=== PATIENT | female | born 1930 | race Caucasian/White ===

== ENCOUNTER 2018-09-29 09:13 | Day surgery (SDC) | payer OTHER, BC ==
[2018-09-27 15:32] VITALS: BMI 28.2
[2018-09-29 11:37] VITALS: TEMP 98.1
[2018-09-29 12:35] VITALS: BP 138/70; PULSE 81
--- NOTE | 2018-10-02 18:06 | PATH ---
Surgical Pathology Report Patient Name: COLIN WHATLEY [facility]. Rec. #: [id number] /Age/Gender: 1930 (Age: 88) / F Account: [id number] Location: [facility]-ENDOSCOPY Taken: 09/29/2018 Received: 09/29/2018 Reported: 10/02/2018 Physicians: Jeremias Clark M.D. Specimen(s) Received A: BX ANTRUM B: BX TRANSVERSE COLON POLYP C: BX RIGHT COLON POLYP Clinical History Abdominal pain with GERD, adenoma surveillance, family history of colon cancer, worsening constipation, history of gastric polyp, surveillance Postoperative diagnosis: Antral gastritis, colon polyps, diverticulosis Final Diagnosis A. ANTRUM GASTRITIS, BIOPSY: GASTRIC MUCOSA WITH MILD CHRONIC GASTRITIS. IMMUNOSTAIN FOR H. PYLORI IS NEGATIVE. NEGATIVE FOR INTESTINAL METAPLASIA. B. TRANSVERSE COLON POLYPS, POLYPECTOMY: TUBULAR ADENOMA, FRAGMENTS. SEPARATE FRAGMENTS OF COLONIC MUCOSA WITH FOCAL SURFACE HYPERPLASTIC CHANGE. C. RIGHT COLON POLYP, POLYPECTOMY: TUBULAR ADENOMA. Electronically Signed Amna Cintron M.D. Gross Description A. Received in formalin, labeled "biopsy antral gastritis" are 5 king, irregular portions of soft tissue ranging from 0.1-0.4 cm. in greatest dimension. The specimens are submitted in toto in one cassette. B. Received in formalin, labeled "biopsy transverse colon polyps" are 5 king, irregular portions of soft tissue ranging from 0.1-0.4 cm. in greatest dimension. The specimens are submitted in toto in one cassette. C. Received in formalin, labeled "biopsy right colon polyp" is a king, irregular portion of soft tissue measuring 0.3 cm. in greatest dimension. The specimen is submitted in toto in one cassette. DL/09/29/2018 saudi/09/29/2018
== END 2018-09-29 12:47 | disposition home or self-care (01) ==
LOC: JASU-ENDO 09:13
PROVIDERS: ATTEND Internal Medicine Gastroenterology
PROC: 0DBL8ZX Excision of Transverse Colon, Via Natural or Artificial Opening Endoscopic, Diagnostic (ICD-10-PCS; 2018-09-29)
PROC: 0DB68ZX Excision of Stomach, Via Natural or Artificial Opening Endoscopic, Diagnostic (ICD-10-PCS; 2018-09-29)
PROC: 0DBK8ZX Excision of Ascending Colon, Via Natural or Artificial Opening Endoscopic, Diagnostic (ICD-10-PCS; principal; 2018-09-29 10:15)
DX: Z12.11 Encounter for screening for malignant neoplasm of colon (principal); Z86.010 Personal history of colon polyps; Z80.0 Family history of malignant neoplasm of digestive organs; D12.2 Benign neoplasm of ascending colon; D12.3 Benign neoplasm of transverse colon; K57.30 Diverticulosis of large intestine without perforation or abscess without bleeding; K64.8 Other hemorrhoids; K29.50 Unspecified chronic gastritis without bleeding
CPT/HCPCS: 88305-TC; 88342-TC

== ENCOUNTER 2019-02-27 07:21 | Inpatient (IN) | payer OTHER, BC ==
[2019-02-22 12:07] VITALS: BMI 27.4
[2019-02-27] MEDS ORDERED: VANCOMYCIN 1,000 MG VIAL (RESTRICTED TO ID ONLY) ONE (07:34)
[2019-02-27] MEDS ORDERED: ceFAZolin SODIUM 1 GM VIAL ONE ×2 (07:34→09:12)
--- NOTE | 2019-02-27 08:01 | HP ---
Satellite H - Chief Complaint Chief Complaint: right knee pain - Past Medical History Allergies/Adverse Reactions: Allergies Allergy/AdvReac Type Severity Reaction Status Date / Time No Known Drug Allergies Allergy Verified 02/22/19 11:56 Cardiovascular: Yes: HTN, Hyperlipdemia Renal/: Yes: UTI Endocrine: Yes: Hypothyroidism - Current Medications Current Medications: Home Medications Medication Instructions Recorded Calcium Carbonate [Calcium] 500 mg PO BID 05/21/16 Cholecalciferol (Vitamin D3) 2,000 unit PO DAILY 05/21/16 [Vitamin D3] Ranitidine [Zantac -] 150 mg PO BID 05/21/16 Amlodipine Besylate [Norvasc -] 5 mg PO DAILY 06/22/16 Levothyroxine [Synthroid -] 88 mcg PO DAILY@0700 #30 tablet 06/28/16 Multivitamin [One-Daily 1 each PO DAILY 09/28/18 Multi-Vitamin] Polyethylene Glycol 3350 [Miralax 17 gm PO DAILY 09/28/18 119 gm Btl -] Pravastatin Sodium [Pravachol -] 40 mg PO HS 09/28/18 Vit A/Vit C/Vit E/Zinc/Copper 1 each PO BID 09/28/18 [Preservision Areds Softgel] Magnesium Carb/Aluminum Hydrox 1 each PO Q4H PRN 30 Days #120 09/29/18 [Gaviscon Es Tablet Chew] tab.chew Satellite Physical Exam - Physical Examination General Appearance: Well Nourished, Well Developed, Alert & Oriented x3 ENT: Clear Lung: Normal air movement Heart: Regular rate & rhythm Extremities: Other (right knee- +swelling, + ttp ,decr rom, nvi xrays show grade 4 tricompartmental djd) Neurological: Intact, Alert, Oriented Satellite Impression/Plan - Impression/Plan Impression: right knee djd Operative Procedure: right siomara tkr Date to be Performed: 02/27/19
[2019-02-27] MEDS ORDERED: TRANEXAMIC ACID 1000 MG/10 ML VIAL IVPUSH ONE (08:15)
[2019-02-27] MEDS ORDERED: CEFAZOLIN 2 GM in DEXTROSE 5%-WATER - 50 ML IVPB ONE (08:15)
[2019-02-27] MEDS ORDERED: CELECOXIB 200 MG CAPSULE PO ONE (08:15)
[2019-02-27] MEDS ORDERED: GABAPENTIN 300 MG CAPSULE (FP) PO ONE (08:15)
[2019-02-27] MEDS ORDERED: MIDAZOLAM HCL 2 MG/2 ML SINGLE DOSE VIAL ONE (08:39)
[2019-02-27] MEDS ORDERED: BUPIVACAINE LIPOSOME/PF (EXPAREL) 266 MG/20 ML VIAL ONE (08:39)
[2019-02-27] MEDS ORDERED: TRANEXAMIC ACID 1000 MG/10 ML VIAL ONE (09:12)
[2019-02-27] MEDS ORDERED: SUCCINYLCHOLINE CHLORIDE 200 MG/10 ML VIAL ONE (09:21)
[2019-02-27] MEDS ORDERED: PROPOFOL 20 ML ONE (09:22)
[2019-02-27] MEDS ORDERED: MAG HYDROX/AL HYDROX/SIMETH 30 ML UNIT-DOSE CUP PO PRN (10:17)
[2019-02-27] MEDS ORDERED: ONDANSETRON 4 MG/2 ML VIAL IVPUSH PRN (10:17)
[2019-02-27] MEDS ORDERED: MAGNESIUM HYDROX 2400MG/30ML ORAL SUSPENSION 30 ML CUP PO PRN (10:17)
[2019-02-27] MEDS ORDERED: LACTATED RINGERS SOLUTION 1,000 ML IV SCH (10:30)
[2019-02-27] MEDS ORDERED: VANCOMYCIN 1,000 MG VIAL (RESTRICTED TO ID ONLY) IVPB ONE (11:32)
--- NOTE | 2019-02-27 11:52 | OP ---
Operative Note - Note: Operative Date: 02/27/19 (quynh) Pre-Operative Diagnosis: right knee djd Operation: right siomara tkr Post-Operative Diagnosis: Same as Pre-op Surgeon: Kenny Nunez Sensitizer: Rajeev Ferrara Anesthesiologist/SECURITY INSTALLATION SALES TECHNICIAN: Mohan Silva Anesthesia: Spinal, Local Specimens Removed: bone fragments Estimated Blood Loss (mls): 100 Operative Report Dictated: Yes
[2019-02-27] MEDS ORDERED: ONDANSETRON 4 MG/2 ML VIAL ONE (12:04)
[2019-02-27] MEDS ORDERED: ACETAMINOPHEN 325 MG TABLET (FP) PO ONE (12:30)
[2019-02-27] MEDS ORDERED: ACETAMINOPHEN 325 MG TABLET (FP) ONE (12:46)
[2019-02-27] MEDS ORDERED: oxyCODONE HCL 5 MG TABLET PO PRN (13:53)
[2019-02-27] MEDS: oxyCODONE HCL 5 MG TABLET PO PRN ×3 (14:23→21:45)
--- NOTE | 2019-02-27 16:56 | CONSULT ---
Consult Consult Specialty:: IM Reason for Consultation:: post-op medical management - History of Present Illness Chief Complaint: right knee pain from DJD History of Present Illness: 88 yo lady with ongoing right DJD came in for TKR. denies chest pain, palpitations, nausea, vomiting, diarrhea. - History Source History Provided By: Patient, Family Member Limitations to Obtaining History: No Limitations - Past Medical History Cardio/Vascular: Yes: HTN, Hyperlipdemia Renal/: Yes: UTI Endocrine: Yes: Hypothyroidism - Past Surgical History Past Surgical History: Yes: Hysterectomy - Alcohol/Substance Use Hx Alcohol Use: Yes (WINE WITH DINNER) History of Substance Use: reports: None - Smoking History Smoking history: Never smoked Have you smoked in the past 12 months: No Aproximately how many cigarettes per day: 0 - Social History ADL: Independent Occupation: Housewife, 2 sons History of Recent Travel: No Home Medications - Allergies Allergies/Adverse Reactions: Allergies Allergy/AdvReac Type Severity Reaction Status Date / Time No Known Drug Allergies Allergy Verified 02/22/19 11:56 - Home Medications Home Medications: Ambulatory Orders Calcium Carbonate [Calcium] 500 mg PO BID 05/21/16 Cholecalciferol (Vitamin D3) [Vitamin D3] 2,000 unit PO DAILY 05/21/16 Ranitidine [Zantac -] 150 mg PO BID 05/21/16 Amlodipine Besylate [Norvasc -] 5 mg PO DAILY 06/22/16 Levothyroxine [Synthroid -] 88 mcg PO DAILY@0700 #30 tablet 06/28/16 Multivitamin [One-Daily Multi-Vitamin] 1 each PO DAILY 09/28/18 Pravastatin Sodium [Pravachol -] 40 mg PO HS 09/28/18 Vit A/Vit C/Vit E/Zinc/Copper [Preservision Areds Softgel] 1 each PO BID Magnesium Carb/Aluminum Hydrox [Gaviscon Es Tablet Chew] 1 each PO Q4H PRN 30 Days #120 tab.chew 09/29/18 Aspirin [ASA -] 325 mg PO DAILY@0800 tablet 02/27/19 Metoprolol Tartrate [Lopressor -] 12.5 mg PO DAILY 02/27/19 Oxycodone HCl/Acetaminophen [Percocet 5-325 mg Tablet -] 1 - 2 tab PO Q6H #50 tab MDD 8 02/27/19 Family Disease History - Family Disease History Family Disease History: CA: Grandparent, Father Review of Systems - Review of Systems Constitutional: reports: No Symptoms Eyes: reports: No Symptoms HENT: reports: No Symptoms Neck: reports: No Symptoms Cardiovascular: reports: No Symptoms Respiratory: reports: No Symptoms Gastrointestinal: reports: No Symptoms Genitourinary: reports: No Symptoms Musculoskeletal: reports: Joint Pain Integumentary: reports: No Symptoms Neurological: reports: No Symptoms Endocrine: reports: No Symptoms Hematology/Lymphatic: reports: No Symptoms Psychiatric: reports: No Symptoms Pain Intensity: 6 Physical Exam Vital Signs: Vital Signs Temperature 97.6 F 02/27/19 13:20 Pulse Rate 53 L 02/27/19 14:36 Respiratory Rate 18 02/27/19 14:36 Blood Pressure 134/68 02/27/19 14:36 O2 Sat by Pulse Oximetry (%) 100 02/27/19 13:20 Constitutional: Yes: Well Nourished, No Distress, Calm Eyes: Yes: WNL HENT: Yes: WNL Neck: Yes: WNL Cardiovascular: Yes: WNL Respiratory: Yes: WNL Gastrointestinal: Yes: WNL Renal/: Yes: WNL Musculoskeletal: Yes: WNL, Joint Stiffness Extremities: Yes: WNL Edema: No Peripheral Pulses WNL: Yes Integumentary: Yes: WNL Wound/Incision: Yes: Clean/Dry, Well Approximated, Dressing Dry and Intact Neurological: Yes: WNL ...Motor Strength: WNL Psychiatric: Yes: WNL Assessment/Plan 88 yo lady with right knee djd S/P TKR. no complications. cont pain management. incentive spirometry on oxycodone. -GI, DVT prophylaxis. -HTN: cont amlodipine, lopressor. bradycardia noted. will hold lopressor if remains bradycardeic. -hypothyroidism: on synthroid -CAD: cont aspirin ,atorvastatin -peripheral neuropathy: on neurontin. -ID: covered with ancef. -oral diet; well tolerated -PT/OOB as tolerated -labs pending -assessment and plan discussed with pt and daughter at bedside. all questions answered. hopefully will DC in 48 hours.
[2019-02-27] MEDS: CEFAZOLIN 2 GM/D5W 2 GM/50 ML ML IVPB SCH (17:53)
[2019-02-27] MEDS: ACETAMINOPHEN 325 MG TABLET (FP) PO SCH (21:01)
[2019-02-27] MEDS: RANITIDINE HCL 150 MG TABLET (FP) PO SCH (21:01)
[2019-02-27] MEDS: GABAPENTIN 300 MG CAPSULE (FP) PO SCH (21:01)
[2019-02-27] MEDS: ATORVASTATIN CA 10 MG TABLET (FP) PO SCH (21:01)
[2019-02-27] MEDS: SENNOSIDES/DOCUSATE COMBO (SENNA PLUS) TABLET (UD) PO SCH (21:01)
[2019-02-27] MEDS ORDERED: PATIENT'S OWN MEDICATION (NON-FORMULARY) (Pravastatin Sodium 40 MG) PO SCH (22:00)
[2019-02-28] MEDS: CEFAZOLIN 2 GM/D5W 2 GM/50 ML ML IVPB SCH (01:45)
[2019-02-28] MEDS: ACETAMINOPHEN 325 MG TABLET (FP) PO SCH ×4 (03:17→21:25)
[2019-02-28] MEDS: LEVOTHYROXINE NA 88 MCG TABLET (FP) PO SCH (07:03)
[2019-02-28] MEDS: ASPIRIN 325 MG TABLET PO SCH (08:12)
[2019-02-28 08:38] LABS: HEMATOCRIT 38.1 % (32.4-45.2); HEMOGLOBIN 13.1 GM/dl (10.7-15.3); MCH 31.1 pg (25.7-33.7); MCHC 34.3 g/dl (32.0-36.0); MEAN CELL VOLUME 90.8 fl (80-96); MEAN PLT VOLUME 9.6 fl (7.5-11.1); PLATELET COUNT 165 K/MM3 (134-434); RBC 4.19 M/mm3 (3.60-5.2); RDW 12.2 % (11.6-15.6); WHITE BLOOD COUNT 9.4 K/mm3 (4.0-10.8)
[2019-02-28] MEDS: GABAPENTIN 300 MG CAPSULE (FP) PO SCH (09:06)
[2019-02-28] MEDS: PANTOPRAZOLE 40 MG TABLET (FP) PO SCH (09:06)
[2019-02-28] MEDS: MULTIVITAMINS (DAILY MVI) TABLET (FP) PO SCH (09:06)
[2019-02-28] MEDS: SENNOSIDES/DOCUSATE COMBO (SENNA PLUS) TABLET (UD) PO SCH ×2 (09:07→21:25)
[2019-02-28] MEDS: RANITIDINE HCL 150 MG TABLET (FP) PO SCH ×2 (09:07→21:25)
[2019-02-28] MEDS: METOPROLOL TARTRATE 25 MG TABLET (FP) PO SCH (09:10)
--- NOTE | 2019-02-28 09:58 | PN ---
Progress Note (short form) - Note Progress Note: Ortho Pt seen and examined s/p right siomara tkr pod #1 Selected Entries 02/28/19 08:55 Temperature 97.8 F Pulse Rate 65 Respiratory 16 Rate Blood Pressure 102/49 L Laboratory Tests 02/28/19 07:05 WBC 9.4 Hgb 13.1 Hct 38.1 Plt Count 165 dressing c/d/i, calf soft, nt rom 0-40, nvi a/p PT dvt ppx pain control d/c home tomorrow if stable
[2019-02-28] MEDS ORDERED: amLODIPine BESYLATE 5 MG TABLET (FP) PO SCH (10:00)
--- NOTE | 2019-02-28 13:34 | PN ---
Progress Note (short form) - Note Progress Note: ANESTHESIA POSTOP 88 YO FEMALE POD#1 S/P RTKA, SPINAL ANESTHESIA, PNB Patient in PT, complains of feeling sleepy, pain adequately controlled VSS, Afebrile Continue current care, will d/c gabapentin to see if symptoms improve. Encouraged IS and PT participation. No anesthetic complications
--- NOTE | 2019-02-28 14:39 | PN ---
Progress Note, Physician Chief Complaint: right knee pain History of Present Illness: 88 yo lady with ongoing right DJD came in for TKR. denies chest pain, palpitations, nausea, vomiting, diarrhea. - Current Medication List Current Medications: Active Medications Acetaminophen (Tylenol -) 650 mg PO Q6H [facility] Stop: 03/02/19 20:59 Last Admin: 02/28/19 14:04 Dose: 650 mg Al Hydroxide/Mg Hydroxide (Mylanta Oral Suspension -) 30 ml PO Q4H PRN PRN Reason: DYSPEPSIA Amlodipine Besylate (Norvasc -) 5 mg PO DAILY [facility] Last Admin: 02/28/19 09:10 Dose: Not Given Aspirin (Asa -) 325 mg PO DAILY@0800 [facility] Last Admin: 02/28/19 08:12 Dose: 325 mg Atorvastatin Calcium (Lipitor -) 10 mg PO HS [facility] Last Admin: 02/27/19 21:01 Dose: 10 mg Fentanyl (Sublimaze Injection -) 50 mcg IVPUSH [id number] PRN PRN Reason: PAIN-PACU ORDER X 4 DOSES ONLY Levothyroxine Sodium (Synthroid -) 88 mcg PO DAILY@0700 [facility] Last Admin: 02/28/19 07:03 Dose: 88 mcg Magnesium Hydroxide (Milk Of Magnesia -) 30 ml PO PRN PRN PRN Reason: CONSTIPATION Metoprolol Tartrate (Lopressor -) 12.5 mg PO DAILY [facility] Last Admin: 02/28/19 09:10 Dose: Not Given Multivitamins/Minerals/Vitamin C (Tab-A-Vit -) 1 tab PO DAILY [facility] Last Admin: 02/28/19 09:06 Dose: 1 tab Ondansetron HCl (Zofran Injection) 4 mg IVPUSH Q6H PRN PRN Reason: NAUSEA Oxycodone HCl (Roxicodone -) 5 mg PO Q3H PRN PRN Reason: PAIN LEVEL 1-5 Oxycodone HCl (Roxicodone -) 10 mg PO Q3H PRN PRN Reason: PAIN LEVEL 6-10 Last Admin: 02/27/19 21:45 Dose: 10 mg Pantoprazole Sodium (Protonix -) 40 mg PO DAILY [facility] Last Admin: 02/28/19 09:06 Dose: 40 mg Ranitidine HCl (Zantac -) 150 mg PO BID [facility] Last Admin: 02/28/19 09:07 Dose: 150 mg Senna/Docusate Sodium (Pericolace -) 2 tablet PO BID [facility] Last Admin: 02/28/19 09:07 Dose: 2 tablet - Objective Vital Signs: Vital Signs Temperature 97.8 F 02/28/19 13:49 Pulse Rate 60 02/28/19 13:49 Respiratory Rate 16 02/28/19 13:49 Blood Pressure 98/55 L 02/28/19 13:49 O2 Sat by Pulse Oximetry (%) 91 L 02/28/19 13:49 Constitutional: Yes: Well Nourished, No Distress Eyes: Yes: WNL HENT: Yes: WNL Neck: Yes: WNL Cardiovascular: Yes: WNL Respiratory: Yes: WNL Gastrointestinal: Yes: WNL ...Rectal Exam: Yes: WNL Musculoskeletal: Yes: Joint Stiffness Extremities: Yes: WNL Peripheral Pulses WNL: Yes Integumentary: Yes: WNL Wound/Incision: Yes: Clean/Dry, Well Approximated, Dressing Dry and Intact Neurological: Yes: WNL ...Motor Strength: WNL Psychiatric: Yes: WNL Labs: CBC, BMP 02/28/19 07:05 Assessment/Plan 88 yo lady with right knee djd S/P TKR. no complications. cont pain management. incentive spirometry on oxycodone. -GI, DVT prophylaxis. -HTN: cont lopressor. stopped amlodipine as BP is low. -hypothyroidism: on synthroid -CAD: cont aspirin ,atorvastatin -peripheral neuropathy: on neurontin. -ID: covered with ancef. -oral diet; well tolerated -PT/OOB as tolerated -labs pending -assessment and plan discussed with pt and daughter at bedside. all questions answered. hopefully will DC tomorrow
--- NOTE | 2019-02-28 18:14 | SPEC ---
DATE OF OPERATION: 02/27/2019 PREOPERATIVE DIAGNOSIS: Degenerative joint disease, right knee. POSTOPERATIVE DIAGNOSIS: Degenerative joint disease, right knee. PROCEDURE: Right total knee replacement with robotic-assisted navigation (Makoplasty). SURGICAL ATTENDING: Kenny Nunez M.D. SOFTWARE PRODUCT SPECIALIST: YOGI Thao ANESTHESIA: Regional and spinal. CLOSURE: A Triathlon cemented knee system with a 5 femur, 4 tibia, 9 TS polyethylene, 29 patella, a 100-mm tibial stem, number 1 Vicryl fascia, 0 and 2-0 subcutaneous, 3-0 Monocryl subcuticular with skin glue for skin, 4-0 undyed Vicryl for pin site. ESTIMATED BLOOD LOSS: Negligible. TOURNIQUET TIME: Approximately 24 minutes. COMPLICATIONS: None. CONDITION: To recovery room in stable condition. DESCRIPTION OF OPERATIVE PROCEDURE: Patient was taken to the operating room on February 27, 2019. Regional and general anesthesia was administered by the anesthesiologist. IV Kefzol and TXA were administered by the anesthesiologist. Well-padded pneumatic tourniquet was placed on the proximal thigh. The right lower extremity was prepped and draped in the usual sterile fashion. The leg was exsanguinated with an Esmarch bandage, and tourniquet was inflated to 275 mmHg. A 12 to 15-cm longitudinal midline incision was incised while centered over the patella. The dissection was carried down to the level of the extensor mechanism with sufficient flaps made to adequately perform the procedure. A medial parapatellar arthrotomy was then performed. We made a cuff of tissue on the patella for later closure. The patella was inverted, the knee was flexed up. The fat pad was excised. The subperiosteal dissection was on the anteromedial proximal tibia around towards the direction of the MCL. The ACL and the PCL were transected and debrided. The meniscal remnants of the medial and lateral meniscus were debrided and removed. This allowed the knee to be able to "be brought forward." The checkpoints were malleted into the tibia and into the femur. Two threaded pins were drilled anteroposteriorly proximal to the knee through the previous incision, through the anterior cortex, then just engaging the posterior cortex. To these pins was assembled the femoral navigation array. One handbreadth below the tibial tubercle, 2 stab incisions were used to drill 2 threaded pins in parallel fashion into the tibia, again through the anterior cortex and just engaging the posterior cortex. To these pins was fastened the tibial arrays. The knee was then registered with the navigation device with center of rotation of the hip, medial and lateral malleoli, both checkpoints, and multiple points on both the femur and the tibia to ensure excellent registration. The navigation device was directed off the "top of the bubbles" on both the femur and the tibia. The navigation passed within less than 0.5 mm to plan. The knee was then thoroughly inspected to remove all osteophytes both medially, laterally, and on the femur and the tibia, and whatever osteophytes were available for dissection. The knee was then taken to extension and to flexion, and stressed in both varus and valgus to assess flexion gaps. The virtual position of the components on the navigation device were then manipulated to optimize the position and to ensure equal gaps in both flexion and extension, and both medially and laterally. The robot was then brought into the field and was registered. The cuts were then made both on the femur and on the tibia as to plan. All osteophytes posteriorly were then removed as well. The gaps were then measured again in flexion and extension to be equal in both flexion and extension and medial and laterally. The femoral notch was then made, as we were doing a posterior stabilizing component, with the appropriate sized box. Trial reduction of the femur achieved excellent [id number] fit. A tibial baseplate of appropriate polyethylene thickness was "floated in the knee." It was ensured to be in the excellent position by navigation devices and was pinned in place. The knee was taken through a range of motion, and found to have excellent stability throughout flexion and extension. The patella was calibrated for thickness and osteotomized down to the appropriate level. The appropriate lollipop was used to drill the lug holes in the patella and the trial button was applied. The knee was taken through a range of motion and found to have excellent tracking of the patella, and patella from full extension to full flexion. Trial components were removed, the keel was punched and drilled, and a sclerotic bone on the tibia was drilled to help with cement interdigitation. The knee was thoroughly irrigated with the pulse antibiotic usability strategist. The real components were then cemented in using monitored arrangement cement techniques with antibiotic cement, and pressurization and extension. After the cement was hardened, the knee was thoroughly inspected to remove any extra cement. The real polyethylene component was then clipped into place. Range of motion, stability, and tracking were as described earlier. The checkpoints and the pins were removed. The knee was thoroughly irrigated with antibiotic irrigation. Vancomycin powder was placed into the knee for antibiotic prophylaxis. The medial parapatellar arthrotomy was then closed using number 1 Vicryl interrupted suture. After closure of the deep layer, the knee was taken through a range of motion, and found to have excellent stability of the patella with no dislocation and no undue tension on the repair. The subcutaneous was pulse antibiotic irrigated, and was then closed with 2-0 Vicryl, 3-0 Monocryl subcuticular with the skin glue for the skin. The distal tibial pin site was irrigated thoroughly as well and then closed with 4-0 undyed Vicryl. A sterile Aquacel dressing was applied, followed by a Milton dressing. Tourniquet was deflated. Total tourniquet time was approximately 75 minutes. No complications. Patient was awakened from anesthesia and transferred to recovery room in stable condition. Postoperative x-rays revealed excellent position of the components. Len [id number]
[2019-02-28] MEDS: ATORVASTATIN CA 10 MG TABLET (FP) PO SCH (21:25)
[2019-03-01] MEDS: ACETAMINOPHEN 325 MG TABLET (FP) PO SCH ×2 (03:00→08:33)
[2019-03-01] MEDS: LEVOTHYROXINE NA 88 MCG TABLET (FP) PO SCH (06:14)
[2019-03-01] MEDS: ASPIRIN 325 MG TABLET PO SCH (07:25)
[2019-03-01 07:54] LABS: HEMATOCRIT 35.3 % (32.4-45.2); HEMOGLOBIN 11.6 GM/dl (10.7-15.3); MCH 30.1 pg (25.7-33.7); MEAN CELL VOLUME 91.1 fl (80-96); MEAN PLT VOLUME 9.8 fl (7.5-11.1); PLATELET COUNT 139 K/MM3 (134-434); RBC 3.87 M/mm3 (3.60-5.2); RDW 12.3 % (11.6-15.6); WHITE BLOOD COUNT 9.3 K/mm3 (4.0-10.8)
--- NOTE | 2019-03-01 08:16 | PN ---
Progress Note (short form) - Note Progress Note: Ortho Pt seen and examined s/p right siomara tkr pod #2 Selected Entries 03/01/19 06:00 Temperature 98.8 F Pulse Rate 85 Respiratory 18 Rate Blood Pressure 114/56 L Laboratory Tests 03/01/19 07:21 WBC 9.3 Hgb 11.6 Hct 35.3 Plt Count 139 dressing c/d/i, calf soft, nt rom 0-70, nvi a/p PT dvt ppx pain control d/c home today if BP stable f/u in 1 week
--- NOTE | 2019-03-01 08:18 | DS ---
Physical Examination Vital Signs: Vital Signs Temperature 98.8 F 03/01/19 06:00 Pulse Rate 85 03/01/19 06:00 Respiratory Rate 18 03/01/19 07:50 Blood Pressure 114/56 L 03/01/19 06:00 O2 Sat by Pulse Oximetry (%) 93 L 03/01/19 01:00 Labs: CBC, BMP 03/01/19 07:21 Discharge Summary Reason For Visit: OSTEOARTHRITIS Procedures: Principal: right tkr Hospital Course: admitted for elective right siomara tkr, developed hypotension, BP meds held, pain meds decreased, BP improved, stable for d/c Condition: Good - Instructions Diet, Activity, Other Instructions: Post-op Instructions-Total Knee Replacement Call the office for a follow-up appointment in 1 week - [phone] Aspirin 325mg daily for 6 weeks. Pain medication was sent into your pharmacy. Apply Graduated Compression Stockings (TEDs) to both lower extremities- remove daily for hygiene ONLY Apply Sequential Compression Device (SCDs) to both Lower extremities remove for PT and hygiene ONLY Apply cold packs to affected area for 15 minutes every 2 hours. Physical Therapist will come to your home for the first 5 days. You will be set up with outpatient PT at your first post-operative visit. Patient may ambulate as tolerated-encourage self care (at least every 2-3 hours while awake) with walker or cane Maintain Aquacel (waterproof) dressing to operative wound (will be removed by surgeon at first office visit) Shower with Aquacel dressing in place-if Aquacel integrity compromised, remove and apply dry sterile dressing and notify Orthopedist. DO NOT SHOWER unless Orthopedists approves without Aquacel dressing CONTACT THE OFFICE FOR ANY CHANGE IN YOUR CONDITION (for example-fever greater than 102 degrees, excessive bleeding from operative site, purulent drainage, severe swelling or pain) GO TO THE EMERGENCY ROOM IF THERE IS A MEDICAL EMERGENCY Knee Precautions: * Keep a rolled towel under affected heel while in bed or chair (to keep knee in extension) * Keep affected leg elevated except during mealtimes * DO NOT PLACE PILLOW UNDER AFFECTED KNEE * If you have any questions, please do not hesitate to call the office - [phone]. Referrals: Kenny Nunez MD [Staff Physician] - Disposition: VNS/HOME HEALTH CARE - Home Medications Comprehensive Discharge Medication List: Ambulatory Orders Calcium Carbonate [Calcium] 500 mg PO BID 05/21/16 Cholecalciferol (Vitamin D3) [Vitamin D3] 2,000 unit PO DAILY 05/21/16 Ranitidine [Zantac -] 150 mg PO BID 05/21/16 Amlodipine Besylate [Norvasc -] 5 mg PO DAILY 06/22/16 Levothyroxine [Synthroid -] 88 mcg PO DAILY@0700 #30 tablet 06/28/16 Multivitamin [One-Daily Multi-Vitamin] 1 each PO DAILY 09/28/18 Pravastatin Sodium [Pravachol -] 40 mg PO HS 09/28/18 Vit A/Vit C/Vit E/Zinc/Copper [Preservision Areds Softgel] 1 each PO BID Magnesium Carb/Aluminum Hydrox [Gaviscon Es Tablet Chew] 1 each PO Q4H PRN 30 Days #120 tab.chew 09/29/18 Aspirin [ASA -] 325 mg PO DAILY@0800 tablet 02/27/19 Metoprolol Tartrate [Lopressor -] 12.5 mg PO DAILY 02/27/19 Oxycodone HCl/Acetaminophen [Percocet 5-325 mg Tablet -] 1 - 2 tab PO Q6H #50 tab MDD 8 02/27/19
--- NOTE | 2019-03-01 08:39 | PN ---
Progress Note, Physician Chief Complaint: right knee pain History of Present Illness: 88 yo lady with ongoing right DJD came in for TKR. denies chest pain, palpitations, nausea, vomiting, diarrhea. - Current Medication List Current Medications: Active Medications Acetaminophen (Tylenol -) 650 mg PO Q6H [facility] Stop: 03/02/19 20:59 Last Admin: 03/01/19 08:33 Dose: 650 mg Al Hydroxide/Mg Hydroxide (Mylanta Oral Suspension -) 30 ml PO Q4H PRN PRN Reason: DYSPEPSIA Aspirin (Asa -) 325 mg PO DAILY@0800 [facility] Last Admin: 03/01/19 07:25 Dose: 325 mg Atorvastatin Calcium (Lipitor -) 10 mg PO HS [facility] Last Admin: 02/28/19 21:25 Dose: 10 mg Fentanyl (Sublimaze Injection -) 50 mcg IVPUSH [id number] PRN PRN Reason: PAIN-PACU ORDER X 4 DOSES ONLY Levothyroxine Sodium (Synthroid -) 88 mcg PO DAILY@0700 [facility] Last Admin: 03/01/19 06:14 Dose: 88 mcg Magnesium Hydroxide (Milk Of Magnesia -) 30 ml PO PRN PRN PRN Reason: CONSTIPATION Metoprolol Tartrate (Lopressor -) 12.5 mg PO DAILY [facility] Last Admin: 02/28/19 09:10 Dose: Not Given Multivitamins/Minerals/Vitamin C (Tab-A-Vit -) 1 tab PO DAILY [facility] Last Admin: 02/28/19 09:06 Dose: 1 tab Ondansetron HCl (Zofran Injection) 4 mg IVPUSH Q6H PRN PRN Reason: NAUSEA Oxycodone HCl (Roxicodone -) 5 mg PO Q3H PRN PRN Reason: PAIN LEVEL 1-5 Oxycodone HCl (Roxicodone -) 10 mg PO Q3H PRN PRN Reason: PAIN LEVEL 6-10 Last Admin: 02/27/19 21:45 Dose: 10 mg Pantoprazole Sodium (Protonix -) 40 mg PO DAILY [facility] Last Admin: 02/28/19 09:06 Dose: 40 mg Ranitidine HCl (Zantac -) 150 mg PO BID [facility] Last Admin: 02/28/19 21:25 Dose: 150 mg Senna/Docusate Sodium (Pericolace -) 2 tablet PO BID [facility] Last Admin: 02/28/19 21:25 Dose: 2 tablet - Objective Vital Signs: Vital Signs Temperature 98.8 F 03/01/19 06:00 Pulse Rate 85 03/01/19 06:00 Respiratory Rate 18 03/01/19 07:50 Blood Pressure 114/56 L 03/01/19 06:00 O2 Sat by Pulse Oximetry (%) 93 L 03/01/19 01:00 Constitutional: Yes: Well Nourished Eyes: Yes: WNL HENT: Yes: WNL Neck: Yes: WNL Cardiovascular: Yes: WNL Respiratory: Yes: WNL Gastrointestinal: Yes: WNL ...Rectal Exam: Yes: WNL Genitourinary: Yes: WNL Musculoskeletal: Yes: Joint Stiffness Extremities: Yes: WNL Edema: No Peripheral Pulses WNL: Yes Integumentary: Yes: WNL Wound/Incision: Yes: Clean/Dry, Well Approximated, Dressing Dry and Intact Neurological: Yes: WNL ...Motor Strength: WNL Psychiatric: Yes: WNL Labs: CBC, BMP 03/01/19 07:21 Assessment/Plan 88 yo lady with right knee djd S/P TKR. no complications. cont pain management. incentive spirometry on oxycodone. -GI, DVT prophylaxis. -HTN: cont lopressor. stopped amlodipine as BP is low. -hypothyroidism: on synthroid -CAD: cont aspirin ,atorvastatin -peripheral neuropathy: on neurontin. -ID: covered with ancef. -oral diet; well tolerated -PT/OOB as tolerated -blood work reviewed. WNL. -assessment and plan discussed with pt and daughter at bedside. all questions answered. DC planning
[2019-03-01 09:37] VITALS: BP 115/74; PULSE 81; TEMP 97.9
[2019-03-01] MEDS: PANTOPRAZOLE 40 MG TABLET (FP) PO SCH (09:39)
[2019-03-01] MEDS: SENNOSIDES/DOCUSATE COMBO (SENNA PLUS) TABLET (UD) PO SCH (09:39)
[2019-03-01] MEDS: MULTIVITAMINS (DAILY MVI) TABLET (FP) PO SCH (09:40)
[2019-03-01] MEDS: METOPROLOL TARTRATE 25 MG TABLET (FP) PO SCH (09:40)
[2019-03-01] MEDS: RANITIDINE HCL 150 MG TABLET (FP) PO SCH (09:40)
--- NOTE | 2019-03-06 16:15 | PATH ---
Surgical Pathology Report Patient Name: COLIN WHATLEY Med. Rec. #: [id number] /Age/Gender: 1930 (Age: 88) / F Account: [id number] Location: [facility] MED-S[facility] Taken: 02/27/2019 Received: 02/27/2019 Reported: 03/06/2019 Physicians: Kenny Nunez M.D. Specimen(s) Received RIGHT KNEE BONES Clinical History Osteoarthritis right knee Final Diagnosis KNEE BONES, RIGHT, TOTAL KNEE REPLACEMENT: DEGENERATIVE JOINT DISEASE. Electronically Signed Cherrie Huang M.D. Gross Description Received in formalin labeled "right knee bones," is an 11.0 x 8.0 x 1.5 cm aggregate of multiple portions of bone and soft tissue. The tibial plateau measures 7.0 x 4.8 x 1.6 cm. There is a 1.6 cm greatest dimension area of eburnation present. The remaining articular surfaces are king-yellow and diffusely granular. The underlying trabecular bone is yellow and hard. Crop Supervisor sections are submitted in one cassette, following decalcification. 03/01/2019 [facility]03/01/2019
== END 2019-03-01 13:56 | disposition home health service (06) | DRG 470 ==
LOC: FM/S 07:21
PROVIDERS: ADMIT Orthopaedic Surgery; ATTEND Orthopaedic Surgery
PROC: 8E0Y0CZ Robotic Assisted Procedure of Lower Extremity, Open Approach (ICD-10-PCS; 2019-02-27)
PROC: 0SRC0J9 Replacement of Right Knee Joint with Synthetic Substitute, Cemented, Open Approach (ICD-10-PCS; principal; 2019-02-27 10:19)
DX: M17.11 Unilateral primary osteoarthritis, right knee (principal); I10 Essential (primary) hypertension; E78.5 Hyperlipidemia, unspecified; E03.9 Hypothyroidism, unspecified; R00.1 Bradycardia, unspecified; I25.10 Atherosclerotic heart disease of native coronary artery without angina pectoris; G62.89 Other specified polyneuropathies; I95.81 Postprocedural hypotension
CPT/HCPCS: 36415; 73560-TC-RT-FY; 85027; 88304-TC; 88311-TC; 94760; 97116-GP; 97163-GP